=== PATIENT | female | born 1955 | race Caucasian/White ===

== ENCOUNTER → 2024-01-30 | Outpatient (CLI) | payer MEDICARE ==
[2024-02-05 11:14] LABS: HPV HIGH RISK BY TMA Not Detected; HPV SOURCE Cervical
== END | disposition home or self-care (01) ==
LOC: LAB SHORT 10:27 → LAB 10:27
PROVIDERS: Family Medicine
DX: Z01.419 Encounter for gynecological examination (general) (routine) without abnormal findings (principal)
CPT/HCPCS: 87624; G0123

== ENCOUNTER 2024-12-13 08:28 | Day surgery (SDC) | payer MEDICARE ==
[2024-12-13] VITALS (17 sets, daily range): BP systolic 59–131; BP diastolic 49–78
[~2024-12-13] VITALS: Ht 162.6 cm; Wt 50.6 kg
[~2024-12-13 08:28] MED LIST: Lactated Ringer's 1,000 ML IV SCH; MAGNESIUM SULF100 MG PO; Vitamin C100 M1 PO; Vitamin D1000 UNI1 PO
--- NOTE | 2024-12-13 09:16 | NUR ---
Ambulatory in Day Surgery WITH STEADY GAIT. ABLE TO USE RESTROOM INDEPENDENTLY. History, Chart, Medications and Allergies reviewed before start of procedure. Patient confirms NPO status and agrees with scheduled surgery. Pre-Op teaching done. Pt verbalizes understanding. Patient States Post-Procedure ride home has been arranged WITH SISTER NEFTALI.
[2024-12-13] MEDS ORDERED: propofoL 20 ML IV ONE (09:41)
--- NOTE | 2024-12-13 09:47 | NUR ---
12/13/24 0947 Shabana Segovia CONFIRMED AND REVIEWED H&P, MEDCICATIONS, ALLERGIES, MEDICAL HISTORY, RESPIRATORY HISTORY, VITAL SIGNS, 3-LEAD EKG, CONSENTS, AND PHYSICIAN ORDERS. PATIENT CONFIRMS NPO STATUS AND AGREES WITH SCHEDULED PROCEDURE. MONITOR INTACT WITH CONTINUOUS PULSE OXIMETRY, CAPNOGRAPHY, 3-LEAD EKG, INTERMITTENT BP. SUPPLEMENTAL O2 TO BE TITRATED THROUGHOUT PROCEDURE TO MAINTAIN O2 SATURATION ABOVE 90%. PATIENT DETERMINED TO BE ASA APPROPRIATE FOR PROPOFOL SEDATION PRIOR TO START OF PROCEDURE BY DR. MARTIN.
[2024-12-13] MEDS ORDERED: Midazolam HCl 1MG / ML 2ML Vial ONE (09:58)
--- NOTE | 2024-12-13 10:51 | NUR ---
Patient up to Ambulate independently. Gait steady. Discharge instructions reviewed with patient. Patient verbalizes understanding. Copy given to patient to take home, [facility]. Patient States Post-Procedure ride home has been arranged. Discharged via wheelchair to private car for ride home. PT DENIES DIZZINESS. TOLERATING PO. DENIES PAIN. REPORTS READY TO GO HOME.
== END 2024-12-13 10:51 | disposition home or self-care (01) ==
LOC: ORSCMMR 08:28 → ORD 09:30 → ORSCMMR 09:30
PROVIDERS: Internal Medicine Gastroenterology
PROC: 0DBH8ZX Excision of Cecum, Via Natural or Artificial Opening Endoscopic, Diagnostic (ICD-10-PCS; principal; 2024-12-13 09:30)
DX: Z12.11 Encounter for screening for malignant neoplasm of colon (principal); K63.5 Polyp of colon
CPT/HCPCS: 88305; J2250; J2704; J7120